=== PATIENT | male | born 1990 | race Asian ===

== ENCOUNTER 2020-02-03 16:09 | Emergency (ER) | payer OTHER, SELFPAY ==
[~2020-02-03] VITALS: Ht 175.3 cm; Wt 79.4 kg
[2020-02-03 16:10] VITALS: BP_SYST 119
== END 2020-02-03 16:53 | disposition home or self-care (01) ==
LOC: SED 16:09
DX: U07.1 COVID-19 (principal)
CPT/HCPCS: 99283

== ENCOUNTER 2020-02-06 21:58 | Emergency (ER) | payer OTHER, SELFPAY ==
[~2020-02-06] VITALS: Ht 175.3 cm; Wt 77.1 kg
[2020-02-06 22:05] VITALS: BP_SYST 113
--- NOTE | 2020-02-06 22:25 | NUR ---
ER Dr. EDEN at bedside examining patient.
--- NOTE | 2020-02-06 22:26 | NUR ---
Patient to ER bed 5 to gown for evaluation. Side rails up. Report given to LIDYA GARRIDO.
--- NOTE | 2020-02-06 22:30 | NUR ---
PT AAO AND AMBULATORY REPORTING WORSENING COUGH AND SOB SINCE HE WAS SEEN HERE 3 DAYS AGO. PT REPORTS N/V SINCE THEN AND SYMPTOMS THAT ARE NOT IMPROVING. V/S STABLE CURRENTLY.
[2020-02-06 23:26] VITALS: BP_SYST 113
--- NOTE | 2020-02-06 23:27 | NUR ---
Patient given written and verbal discharge instructions and verbalizes understanding. DR. MEEK BARNES MD discussed with patient the results and treatment provided. Patient in stable condition. ID arm band removed. Rx of ZITHROMAX AND TESSALON given. Patient educated on pain management and to follow up with PMD. Pain Scale 0/10. Opportunity for questions provided and answered. Medication side effect fact sheet provided.
== END 2020-02-06 23:26 | disposition home or self-care (01) ==
LOC: SED 21:58
DX: U07.1 COVID-19 (principal); J18.9 Pneumonia, unspecified organism
CPT/HCPCS: 71045; 99283